=== PATIENT | female | born 2000 | race Caucasian/White ===

== ENCOUNTER 2022-01-18 15:13 | Emergency (ER) | payer MEDICAID ==
[~2022-01-18] VITALS: Ht 160 cm; Wt 63.5 kg
[2022-01-18 15:38] VITALS: BP 134/65
--- NOTE | 2022-01-18 17:00 | NUR ---
5th digit michelle taped. provided w hard sole shoe. d/c in stable condition.
== END 2022-01-18 17:00 | disposition home or self-care (01) ==
LOC: ER 15:32
DX: S92.515A Nondisplaced fracture of proximal phalanx of left lesser toe(s), initial encounter for closed fracture (principal); W22.8XXA Striking against or struck by other objects, initial encounter; Y93.89 Activity, other specified; Y92.89 Other specified places as the place of occurrence of the external cause; Y99.8 Other external cause status
CPT/HCPCS: 73660-TC